=== PATIENT | male | born 1950 | race Caucasian/White ===

== ENCOUNTER 2019-03-27 12:22 | Emergency (ER) | payer MEDICARE, OTHER ==
[~2019-03-27] VITALS: Ht 177.8 cm; Wt 148.7 kg
[~2019-03-27 12:22] MED LIST: ACET500C5 PO; ASPI-535; IBUP-1542 PO; IBUP-727
[2019-03-27 12:36] VITALS: Ht 177.8 cm; Wt 148.7 kg
[2019-03-27] MEDS ORDERED: KETOROLAC 30 MG INJ IM STA (13:49)
[2019-03-27 14:47] VITALS: BP 143/88; PULSE 77; RESP 18
--- NOTE | 2019-03-27 17:04 | ERD ---
ER Documentation Chief Complaint Chief Complaint MECHANICAL FALL WITH LEFT SHOULDER/KNEE/BACK PAIN. HPI Patient 68-year-old male presented to ED secondary to a fall she states he tripped and hit his left knee. Patient states that he has left shoulder pain lower back pain and left knee pain. Patient has good range of motion in his left shoulder and states that he was has back pain this is normal he says out of all the symptoms his knee feels swollen and hurts when he extends it. Patient states he has been pretty healthy and denies any past medical history patient s tates he has an allergy to aspirin. Patient rates the pain a 9 out of 10 and states that walking on his knee is what aggravates his symptoms. ROS All systems reviewed and are negative except as per history of present illness. Medications Home Meds Active Scripts Acetaminophen* (Tylophen*) 500 Mg Capsule, 1 CAP PO Q6H PRN for PAIN AND OR ELEVATED TEMP, #20 CAP Prov:REED ROSARIO PA-C 03/27/19 Ibuprofen* (Motrin*) 600 Mg Tab, 600 MG PO Q6, #30 TAB Prov:REED ROSARIO PA-C 03/27/19 Reported Medications Aspirin Ec (Aspir 81) 81 Mg Tablet. 07/31/12 Ibuprofen (Motrin) 600 Mg Tablet 07/31/12 Allergies Allergies: Coded Allergies: No Known Allergy (Unverified , 03/27/19) PMhx/Soc History of Surgery: No Anesthesia Reaction: No Hx Neurological Disorder: No Hx Respiratory Disorders: No Hx Cardiac Disorders: No Hx Psychiatric Problems: No Hx Miscellaneous Medical Probl: Yes (OBESITY) Hx Alcohol Use: Yes (Former) Hx Substance Use: No Hx Tobacco Use: No Smoking Status: Never smoker FmHx Family History: No diabetes, No coronary disease, No other Physical Exam Vitals Vital Signs Date Temp Pulse Resp B/P (MAP) Pulse Ox O2 O2 Flow FiO2 Time Delivery Rate 03/27/19 98.0 77 18 143/88 98 Room Air 14:47 (106) 03/27/19 97.3 104 18 155/89 97 12:36 (111) Physical Exam GENERAL: The patient is well-appearing, well-nourished, in no acute distress HEENT: Atraumatic. Conjunctivae are pink. Pupils equal, round, and reactive to light. There is no scleral icterus. Tympanic membranes clear bilaterally. Oropharynx clear. No nystagmus or photophobia. NECK: C-spine is soft and supple. There is no meningismus. There is no cervical lymphadenopathy. CHEST: Clear to auscultation bilaterally. There are no rales, wheezes or rhonchi. HEART: Regular rate and rhythm. No murmurs, clicks, rubs or gallops. ABDOMEN:Soft, nontender and nondistended. Good bowel sounds. No rebound or guarding. No gross peritonitis. No gross organomegaly or masses. No Domínguez sign or McBurney point tenderness. BACK: No midline or flank tenderness. EXTREMITIES: Mild swelling and discomfort to palpation to his left knee patient has limited range of motion extremity. Patient's left arm is nontender to the touch he has good range of motion's good pulse good motor good sensation. NEUROLOGIC: Alert and oriented. Cranial nerves II through VII intact. Motor strength in all 4 extremities with 5 out of 5 strength. Sensation grossly intact. Normal speech and gait. Results 24 hrs Current Medications Medications Dose Sig/Valorie Start Time Status Last (Trade) Ordered Route PRN Stop Time Admin Dose Reason Admin Ketorolac 30 mg ONCE STAT 03/27/19 DC 03/27/19 Tromethamine IM 13:49 13:55 (Toradol) 03/27/19 13:50 Procedures/MDM ED course: The patient was stable throughout the ED course. The patient and/or family informed of laboratory and diagnostic imaging results throughout the ED course. Diagnostic imaging: Read by radiologist PROCEDURE: CR Left Knee CLINICAL INDICATION: Pain TECHNIQUE: An AP, lateral, and an tunnel radiographs were submitted. COMPARISON: None FINDINGS: Osseous Structures: The osseous elements appear well mineralized and intact. 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 No joint effusion is identified. Soft Tissues: An ovoid 3 mm calcification is seen within the soft tissues anterior to the patellar tendon. IMPRESSION: 1. 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 No joint effusion is evident. 2. A 3 mm calcification seen in the soft tissues ventral to the patellar tendon. Procedures: SPLINT APPLICATION: The patient was verbally consented at bedside prior to splint application. Patient was explained the risks, benefits and alternatives to this procedure. The patient was neurovascularly intact prior to and status post application of the splint. The patient tolerated the procedure well with no complications. Splint type: Tito wrap Extremity: Left knee Indication: Pain and swelling I discussed with the patient/family that at anytime if the splint becomes too constricted or if they have loss of sensation, or unable to move any limbs distal to the splint, develop fever, or any discomfort that they should eturn to the ER immdiatly. I educated the patient on risk of compartment syndrome with splint applications. Medications given in ER: Toradol Patient tolerated medication well with no adverse reactions. Patient reported improvement in pain. Medical decision makin-year-old male presented to ED secondary to a fall. Patient had multiple co mplaints physical exam only revealed mild pain swelling to the left knee. Patient good pulse motor sensation in the distal aspect of the extremity. X-ray indicated no acute dislocation or fracture. Patient was given Toradol in the ED and upon reevaluation appears to be doing much better. Patient's knee was immobilized in an Tito wrap and he was given a prescription for acetaminophen and Motrin for pain. This time I have low suspicion for shoulder dislocation, shoulder fracture, humerus fracture, ulnar radius fracture, spinal column fracture, knee dislocation or fracture lower extremity, neurovascular injury. The patient feels comfortable in the knee brace and states he is going to follow-up with his primary care doctor tomorrow. Advised patient return to ED if any symptoms worsen. all questions were answered upon discharge and the patient is agreement treatment plan Prescription for home: Acetaminophen Motrin I have discussed with the patient proper use and common side effects to expert with the medication . I advised the patient/family to speak with the pharmacist dispensing the medication to be advised of any potential drug interactions with other medication or supplements they may be taking. Discharge: At this time, patient is stable for discharge and outpatient management. I have instructed the patient to follow-up with his\her primary care physician in 1 to 2 days. I have discussed with the patient the possibility of needing to see a specialist for further work-up and imaging studies if symptoms persist. I have instructed the patient to promptly return to the ER for any new or worsening symptoms including increased pain, fever, nausea, vomiting, weakness or LOC. The patient and\or family expressed understanding of and agreement with this plan. All questions were answered. Home care instructions were provided. Disclaimer: Inadvertent spelling and grammatical errors are likely due to EHR\dictation software use and do not reflect on the overall quality of patient care. Also, please note that the electronic time recorded on the note does not necessarily reflect the actual time of the patient encounter. Departure Diagnosis: Primary Impression: Knee pain, left Chronicity: acute Qualified Codes: M25.562 - Pain in left knee Additional Impression: Knee sprain Encounter type: initial encounter Involved ligament of knee: unspecified ligament Laterality: left Qualified Codes: S83.92XA - Sprain of unspeci fied site of left knee, initial encounter Condition: Stable Patient Instructions: Knee Sprain Referrals: [facility] YOU HAVE RECEIVED A MEDICAL SCREENING EXAM AND THE RESULTS INDICATE THAT YOU DO NOT HAVE A CONDITION THAT REQUIRES URGENT TREATMENT IN THE EMERGENCY DEPARTMENT. FURTHER EVALUATION AND TREATMENT OF YOUR CONDITION CAN WAIT UNTIL YOU ARE SEEN IN YOUR DOCTORS OFFICE WITHIN THE NEXT 1-2 DAYS. IT IS YOUR RESPONSIBILITY TO MAKE AN APPOINTMENT FOR FOLOW-UP CARE. IF YOU HAVE A PRIMARY DOCTOR --you should call your primary doctor and schedule an appointment IF YOU DO NOT HAVE A PRIMARY DOCTOR YOU CAN CALL OUR PHYSICIAN REFERRAL HOTLINE AT IF YOU CAN NOT AFFORD TO SEE A PHYSICIAN YOU CAN CHOSE FROM THE FOLLOWING [facility] [address] [facility]. [facility] [address] [facility]. [facility] [address] [facility] [facility] [address] [facility] [facility] [address] [facility]. [facility]. [address] [facility]. [facility] YOU HAVE RECEIVED A MEDICAL SCREENING EXAM AND THE RESULTS INDICATE THAT YOU DO NOT HAVE A CONDITION THAT REQUIRES URGENT TREATMENT IN THE EMERGENCY DEPARTMENT. FURTHER EVALUATION AND TREATMENT OF YOUR CONDITION CAN WAIT UNTIL YOU ARE SEEN IN YOUR DOCTORS OFFICE WITHIN THE NEXT 1-2 DAYS. IT IS YOUR RESPONSIBILITY TO MAKE AN APPOINTMENT FOR FOLOW-UP CARE. IF YOU HAVE A PRIMARY DOCTOR --you should call your primary doctor and schedule and appointment IF YOU DO NOT HAVE A PRIMARY DOCTOR YOU CAN CALL OUR PHYSICIAN REFERRAL HOTLINE AT . IF YOU CAN NOT AFFORD TO SEE A PHYSICIAN YOU CAN CHOSE FROM THE FOLLOWING [facility] INSTITUTIONS: [facility] [address] [place] [address] [facility] [address] [place] [address] [facility] [address] [place] [address] [facility] Urgent Care 7 a.m.- 11 p.m. Every Day of the Week NO APPOINTMENT OR AUTHORIZATION NEEDED Additional Instructions: Call your primary care doctor TOMORROW for an appointment during the next 1-2 days.See the doctor sooner or return here if your condition worsens before your appointment time. REED ROSARIO PA-C Mar 27, 2019 17:03
== END 2019-03-27 14:50 | disposition home or self-care (01) ==
LOC: FTE 12:22
DX: S83.92XA Sprain of unspecified site of left knee, initial encounter (principal); E66.9 Obesity, unspecified; W01.0XXA Fall on same level from slipping, tripping and stumbling without subsequent striking against object, initial encounter; Y92.9 Unspecified place or not applicable; Z68.42 Body mass index [BMI] 45.0-49.9, adult
CPT/HCPCS: 73562; 96372; 99284; J1885